=== PATIENT | male | born 1985 | race Caucasian/White ===

== ENCOUNTER 2016-05-25 06:46 | Emergency (ER) | payer BC ==
[~2016-05-25] VITALS: Ht 170.2 cm; Wt 99.8 kg
[~2016-05-25 06:46] MED LIST: AUGMENTIN875 MG PO; CLINDAMYCIN HC300 MG PO; INDOCIN25 MG PO; NASONEX17 GM BOTH NARES; NOHOMEMEDS; NORCO 7.5/321 TABLET PO; no home meds
[2016-05-25 08:08] LABS: HEMATOCRIT 43.4 % (38.0-50.0); MCH 29.8 PG (29.0-34.0); MCHC 35.3 G/DL (30.0-36.0); MCV 84.6 FL (86-99); MEAN PLAT.VOLUME 9.6 uM^3 (9.0-12.4); PLATELET COUNT 213 K/uL (156-360); RBC DIS.WIDTH-CV 12.1 % (11.8-14.6); RBC DIS.WIDTH-SD 36.1 % (39-53); RED BLOOD COUNT 5.13 M/uL (4.00-5.50); WHITE BLOOD COUNT 7.3 K/uL (4.1-10.2)
[2016-05-25 08:21] LABS: CHLORIDE 108 mEq/L (99-109); POTASSIUM 4.1 mEq/L (3.7-5.4); SODIUM 140 mEq/L (136-147)
[2016-05-25 08:23] LABS: GLUCOSE 97 mg/dL (70-99)
[2016-05-25 08:24] LABS: ANION GAP 11 MEQ/L (2-14)
[2016-05-25 08:25] LABS: TOTAL BILIRUBIN 0.6 mg/dL (0.0-1.0)
[2016-05-25 08:26] LABS: ALKALINE PHOSPHATASE 98 IU/L (3-129)
[2016-05-25 08:27] LABS: GFR ESTIMATE (CALCULATED) > 59 mL/min/
[2016-05-25 08:28] LABS: TROP-I INTERPRETATION NEGATIVE; TROPONIN-I < 0.01 ng/mL (0.0-0.30); UREA NITROGEN (BUN) 16 mg/dL (9-23)
[2016-05-25 08:47] LABS: SERUM ETHYL ALCOHOL < 10 mg/dL
[2016-05-25 08:50] LABS: SALICYLATE < 5.0 MG/DL (15-30)
[2016-05-25 09:27] LABS: ADD MIUA? NO; BILIRUBIN NEGATIVE; BLOOD NEGATIVE; COLOR YELLOW ((YELLOW)); GLUCOSE (STRIP) NEGATIVE; KETONES NEGATIVE; LEUKOCYTES NEGATIVE; NITRITE NEGATIVE; PH, URINE 6.5 (5-8); PROTEIN (STRIP) NEGATIVE; SPECIFIC GRAVITY 1.013 (1.000-1.030); UCUL ADDED? NO; UROBILINOGEN 0.2 MG/DL (0.2-1.0)
[2016-05-25 09:35] LABS: AMPHETAMINE NEGATIVE (500 ng/mL); BARBITURATES NEGATIVE (200 ng/mL); BENZODIAZEPINES NEGATIVE (150 ng/mL); COCAINE NEGATIVE (150 ng/mL); METHADONE NEGATIVE (200 ng/mL); METHAMPHETAMINE NEGATIVE (500 ng/mL); OPIATES (MORPHINE) NEGATIVE (100 ng/mL); OXYCODONE NEGATIVE (100 ng/mL); PHENCYCLIDINE NEGATIVE (25 ng/mL); THC CANNABINOIDS NEGATIVE (50 ng/mL); TRICYCLIC ANTIDEPRESSANTS NEGATIVE (300 ng/mL)
[2016-05-25 09:36] LABS: INTERNAL CONTROLS VALID? YES; PROPOXYPHENE NEGATIVE (300 ng/mL)
[2016-05-25 11:02] LABS: TROP-I INTERPRETATION NEGATIVE; TROPONIN-I < 0.01 ng/mL (0.0-0.30)
[2016-05-25 12:35] VITALS: BP 123/83
== END 2016-05-25 13:01 | disposition home or self-care (01) ==
LOC: EME 06:46
PROVIDERS: Physician Assistant
DX: R00.0 Tachycardia, unspecified (principal); E86.0 Dehydration; Z87.442 Personal history of urinary calculi; Z87.891 Personal history of nicotine dependence
CPT/HCPCS: 71020; 80053; 81003; 84484; 85027; 93005; 99281; 99285; G0480; J7120